=== PATIENT | male | born 1930 | race Caucasian/White ===

== ENCOUNTER 2019-04-30 13:14 | Inpatient (IN) | payer OTHER, MEDICAID ==
[~2019-04-30] VITALS: Ht 175.3 cm; Wt 59.0 kg
[~2019-04-30 13:14] MED LIST: BUPIVACAINE /PF 0.75% 10 ML VIAL INJ ONE; CEFAZOLIN 1 GM IVPB PREMIX 50 ML IV ONE; LR 1,000 ML IV.SOLN IV ONE; MORPHINE SULFATE 10MG/10ML PF AMP EP ONE; PROPOFOL 200MG/ 20ML VIAL (DIPRIVAN) IV ONE; ePHEDrine sulfate 50 MG/ML VIAL IVP ONE
[2019-04-30 13:50] VITALS: BP_SYST 146
[2019-04-30] MEDS ORDERED: NACL 0.9% 1,000 ML IV ONE (13:59)
[2019-04-30] MEDS ORDERED: MORPHINE 2 MG/ML INJ. SYRINGE IVP ONE (14:00)
[2019-04-30 14:44] LABS: BASOPHILS % (AUTO) 0.6 % (0.0-2.0); EOSINOPHILS # (AUTO) 0.1 K/uL (0.0-0.4); EOSINOPHILS % (AUTO) 1.8 % (0.0-4.0); LYMPHOCYTES # (AUTO) 0.3 K/uL (1.0-5.5); LYMPHOCYTES % (AUTO) 4.8 % (20.5-51.5); MEAN CORPUSCULAR HEMOGLOBIN 20 pg (27-31); MEAN CORPUSCULAR HGB CONC 30 % (32-36); MEAN CORPUSCULAR VOLUME 67 fL (79.0-98.0); MONOCYTES # (AUTO) 0.5 K/uL (0.0-1.0); MONOCYTES % (AUTO) 8.7 % (1.7-9.3); NEUTROPHILS # (AUTO) 5.2 K/uL (1.8-7.7); NEUTROPHILS % (AUTO) 84.1 % (40.0-70.0); PLATELET COUNT (AUTO) 167 K/uL (130-430); RED BLOOD CELL COUNT(AUTO) 3.15 MIL/uL (4.2-6.2); RED CELL DISTRIBUTION WIDTH 23.3 % (9.0-15.0); WHITE BLOOD COUNT (AUTO) 6.1 K/uL (4.8-10.8)
[2019-04-30 14:47] LABS: HEMOGLOBIN 6.3 g/dL (14.0-18.0)
[2019-04-30 15:00] LABS: ANION GAP 3 (5-15); CHLORIDE 106 mmol/L (98-107); CREATININE 0.79 mg/dL (0.55-1.30); GLUCOSE 69 mg/dL (70-99); POTASSIUM 3.7 mmol/L (3.5-5.1); SODIUM SERUM 143 mmol/L (136-145); UREA NITROGEN, BLOOD 26 mg/dL (8-21)
[2019-04-30 15:09] LABS: ALANINE AMINOTRANSFERASE 18 U/L (12-78); ALBUMIN 2.2 g/dL (3.4-4.8); ASPARTATE AMINOTRANSFERASE 16 U/L (10-37); TOTAL BILIRUBIN 0.9 mg/dL (0.0-1.0)
[2019-04-30 15:14] LABS: CALCIUM 8.4 mg/dL (8.4-11.0)
[2019-04-30] MEDS ORDERED: IOHEXOL 100 ML IV ONE (15:35)
[2019-04-30] MEDS ORDERED: ATROPINE SULFATE 0.5 MG/5 ML SYRINGE IVP ONE (16:15)
[2019-04-30] MEDS ORDERED: ATROPINE SULFATE 1 MG/10 ML SYRINGE IVP ONE (16:26)
[2019-04-30 16:57] LABS: INR 1.2 (0.80-1.20); PROTHROMBIN TIME 11.9 SECS (9.5-12.5)
[2019-04-30 17:27] LABS: BILIRUBIN,URINE 1+ (NEGATIVE); BLOOD, URINE NEGATIVE (NEGATIVE); COLOR,URINE YELLOW (YELLOW); GLUCOSE,URINE NEGATIVE (NEGATIVE); KETONES,URINE NEGATIVE (NEGATIVE); LEUKOCYTE ESTERASE ,URINE NEGATIVE (NEGATIVE); NITRITE, URINE NEGATIVE (NEGATIVE); PH,URINE 5.5 (5.0-8.0); PROTEIN URINE NEGATIVE (NEGATIVE); UROBILINOGEN,URINE 0.2 (0.2-1.0)
[2019-04-30 17:53] LABS: CLARITY/URINE SLIGHTLY HAZY (CLEAR)
[2019-04-30] MEDS ORDERED: KCL 20 mEq in D5/0.45NS 1000mL 1,000 ML IV ONE (18:00)
[2019-04-30] MEDS ORDERED: IPRATROPIUM/ALBUTEROL SULFATE 120 PUFFS/4 GM INH INH SCH (22:30)
[2019-04-30] MEDS ORDERED: MILK OF MAGNESIA 30 ML UDC PO PRN (22:30)
[2019-04-30] MEDS ORDERED: ACETAMINOPHEN 325 MG TABLET PO PRN (22:30)
[2019-04-30] MEDS ORDERED: BISACODYL 10 MG/SUPPOSITORY RC PRN (22:30)
[2019-04-30] MEDS ORDERED: MULT-1117 PO (23:19)
[2019-04-30] MEDS ORDERED: COR3.125 PO (23:19)
[2019-04-30] MEDS ORDERED: PANT40TA4 PO (23:19)
[2019-04-30] MEDS ORDERED: LIP80 PO (23:19)
[2019-04-30] MEDS ORDERED: GLU500 PO (23:19)
[2019-04-30] MEDS ORDERED: FER300L PO (23:19)
[2019-04-30] MEDS ORDERED: GLIP5TAB13 PO (23:19)
[2019-04-30] MEDS ORDERED: ACET-2165 PO (23:19)
[2019-04-30] MEDS ORDERED: MOM PO (23:19)
[2019-04-30] MEDS ORDERED: APIX2.5T PO (23:19)
[2019-04-30] MEDS ORDERED: IPRA4AER INH (23:19)
[2019-04-30] MEDS ORDERED: QUET25TA34 PO (23:19)
[2019-04-30] MEDS ORDERED: BISA10SU61 RC (23:19)
[2019-05-01] VITALS (16 sets, daily range): BP systolic 119–151
[2019-05-01] MEDS ORDERED: IPRATROPIUM/ALBUTEROL SULFATE 3 ML AMPUL.NEB (DUONEB) INH PRN (01:00)
[2019-05-01] MEDS: PANTOPRAZOLE SODIUM 40 MG TAB PO SCH (07:00)
[2019-05-01] MEDS ORDERED: metFORMIN HCL 500 MG TABLET PO SCH ×2 (08:00)
[2019-05-01] MEDS: CARVEDILOL 3.125 MG TABLET (COREG) PO SCH ×2 (08:00→17:22)
[2019-05-01] MEDS ORDERED: APIXABAN 2.5 MG TABLET PO SCH (08:00)
[2019-05-01 08:07] LABS: BASOPHILS % (AUTO) 0.3 % (0.0-2.0); EOSINOPHILS # (AUTO) 0.1 K/uL (0.0-0.4); EOSINOPHILS % (AUTO) 0.4 % (0.0-4.0); HEMATOCRIT 33.6 % (36-54); HEMOGLOBIN 10.1 g/dL (14.0-18.0); LYMPHOCYTES # (AUTO) 0.4 K/uL (1.0-5.5); LYMPHOCYTES % (AUTO) 2.8 % (20.5-51.5); MEAN CORPUSCULAR HEMOGLOBIN 22 pg (27-31); MEAN CORPUSCULAR HGB CONC 30 % (32-36); MEAN CORPUSCULAR VOLUME 73 fL (79.0-98.0); MONOCYTES # (AUTO) 1.1 K/uL (0.0-1.0); NEUTROPHILS # (AUTO) 13.4 K/uL (1.8-7.7); NEUTROPHILS % (AUTO) 89.5 % (40.0-70.0); PLATELET COUNT (AUTO) 267 K/uL (130-430); RED BLOOD CELL COUNT(AUTO) 4.57 MIL/uL (4.2-6.2); RED CELL DISTRIBUTION WIDTH 25.2 % (9.0-15.0)
[2019-05-01] MEDS: FERROUS SULFATE 300 MG/5 ML UDC PO SCH (09:00)
[2019-05-01] MEDS: MULTIVITAMINS TAB 1 TABLET PO SCH (09:00)
[2019-05-01] MEDS: ATORVASTATIN 20 MG TABLET PO SCH (09:00)
[2019-05-01 09:09] LABS: ANION GAP 3 (5-15); CALCIUM 8.6 mg/dL (8.4-11.0); CHLORIDE 106 mmol/L (98-107); CREATININE 0.89 mg/dL (0.55-1.30); GLUCOSE 141 mg/dL (70-99); PHOSPHORUS 4.8 mg/dL (2.7-4.5); POTASSIUM 4.6 mmol/L (3.5-5.1); SODIUM SERUM 139 mmol/L (136-145); UREA NITROGEN, BLOOD 24 mg/dL (8-21)
[2019-05-01 09:27] LABS: TOTAL IRON BIND. CAPACITY 295 ug/dL (250-450)
[2019-05-01] MEDS ORDERED: methylPREDNISolone SOD SUCC/PF 62.5 MG/ML VIAL IVP ONE (09:30)
[2019-05-01] MEDS ORDERED: ALBUTEROL SULFATE 0.083% 2.5 MG/3 ML VIAL.NEB INH PRN (10:00)
[2019-05-01] MEDS ORDERED: IPRATROPIUM BROM 0.5 MG/2.5 ML VIAL.NEB (ATROVENT) INH PRN (10:00)
[2019-05-01] MEDS: NACL 0.9% 1,000 ML IV SCH ×2 (10:56→22:07)
[2019-05-01] MEDS: cefTRIAXone 1 GM in D5W 50 ML IV SCH (10:56)
[2019-05-01] MEDS: metroNIDAZOLE 500 mg/NS 100 ML IV SCH ×3 (11:37→22:11)
[2019-05-01] MEDS: ALBUTEROL SULFATE 0.083% 2.5 MG/3 ML VIAL.NEB INH SCH ×2 (12:51→20:02)
[2019-05-01] MEDS: methylPREDNISolone SOD SUCC/PF 62.5 MG/ML VIAL IVP SCH ×3 (13:05→23:41)
[2019-05-01] MEDS: IPRATROPIUM BROM 0.5 MG/2.5 ML VIAL.NEB (ATROVENT) INH SCH ×2 (13:07→20:01)
[2019-05-01] MEDS: QUEtiapine FUMARATE 25 MG TABLET PO SCH (22:05)
[2019-05-01] MEDS: ENOXAPARIN SODIUM 40 MG/0.4 ML SYRINGE SUBCUT SCH (22:06)
[2019-05-01] MEDS ORDERED: metroNIDAZOLE 500 mg/NS 100 ML IV ONE (22:21)
[2019-05-02] VITALS (24 sets, daily range): BP systolic 116–181
[2019-05-02] MEDS: ALBUTEROL SULFATE 0.083% 2.5 MG/3 ML VIAL.NEB INH SCH ×4 (01:03→20:07)
[2019-05-02] MEDS: IPRATROPIUM BROM 0.5 MG/2.5 ML VIAL.NEB (ATROVENT) INH SCH ×4 (01:03→20:07)
[2019-05-02 05:54] LABS: BASOPHILS % (AUTO) 0.2 % (0.0-2.0); EOSINOPHILS % (AUTO) 0.2 % (0.0-4.0); HEMATOCRIT 27.9 % (36-54); HEMOGLOBIN 8.6 g/dL (14.0-18.0); LYMPHOCYTES # (AUTO) 0.1 K/uL (1.0-5.5); MEAN CORPUSCULAR HEMOGLOBIN 23 pg (27-31); MEAN CORPUSCULAR HGB CONC 31 % (32-36); MEAN CORPUSCULAR VOLUME 73 fL (79.0-98.0); MONOCYTES # (AUTO) 0.1 K/uL (0.0-1.0); MONOCYTES % (AUTO) 1.9 % (1.7-9.3); NEUTROPHILS # (AUTO) 5.6 K/uL (1.8-7.7); NEUTROPHILS % (AUTO) 95.7 % (40.0-70.0); PLATELET COUNT (AUTO) 152 K/uL (130-430); RED BLOOD CELL COUNT(AUTO) 3.83 MIL/uL (4.2-6.2); RED CELL DISTRIBUTION WIDTH 25.5 % (9.0-15.0); WHITE BLOOD COUNT (AUTO) 5.8 K/uL (4.8-10.8)
[2019-05-02 06:25] LABS: ANION GAP 4 (5-15); CALCIUM 8.1 mg/dL (8.4-11.0); CHLORIDE 108 mmol/L (98-107); CREATININE 0.95 mg/dL (0.55-1.30); GLUCOSE 161 mg/dL (70-99); POTASSIUM 4.5 mmol/L (3.5-5.1); SODIUM SERUM 140 mmol/L (136-145); UREA NITROGEN, BLOOD 28 mg/dL (8-21)
[2019-05-02] MEDS: methylPREDNISolone SOD SUCC/PF 62.5 MG/ML VIAL IVP SCH (06:30)
[2019-05-02] MEDS: PANTOPRAZOLE SODIUM 40 MG TAB PO SCH (06:30)
[2019-05-02] MEDS: metroNIDAZOLE 500 mg/NS 100 ML IV SCH ×3 (06:31→21:47)
[2019-05-02] MEDS: FERROUS SULFATE 300 MG/5 ML UDC PO SCH (08:18)
[2019-05-02] MEDS: NACL 0.9% 1,000 ML IV SCH (08:19)
[2019-05-02] MEDS: MULTIVITAMINS TAB 1 TABLET PO SCH (08:19)
[2019-05-02] MEDS: ATORVASTATIN 20 MG TABLET PO SCH (08:19)
[2019-05-02] MEDS: cefTRIAXone 1 GM in D5W 50 ML IV SCH (08:20)
[2019-05-02 10:07] LABS: FOLATE (FOLIC ACID) 8.1 ng/mL (>3.0)
[2019-05-02] MEDS: 0.45% NACL 1,000 ML IV SCH (10:57)
[2019-05-02] MEDS: methylPREDNISolone SOD SUCC 40 MG/ML VIAL IVP SCH ×2 (14:13→21:47)
[2019-05-02] MEDS ORDERED: BALSAM PERU/CASTOR OIL 60 GM OINT...G. TP PRN (14:45)
[2019-05-02] MEDS: SOD FERRIC GLUC COMPLEX/SUC 125 MG in NS 100 ML IV SCH (15:58)
[2019-05-02] MEDS: QUEtiapine FUMARATE 25 MG TABLET PO SCH (21:47)
[2019-05-02] MEDS: ENOXAPARIN SODIUM 40 MG/0.4 ML SYRINGE SUBCUT SCH (21:52)
[2019-05-02] MEDS: INSULIN REGULAR, HUMAN 100 UNITS/ML, 10 ML VIAL (humuLIN R) SUBCUT PRN (22:38)
[2019-05-03] VITALS (23 sets, daily range): BP systolic 130–179
[2019-05-03] MEDS: IPRATROPIUM BROM 0.5 MG/2.5 ML VIAL.NEB (ATROVENT) INH SCH ×2 (01:00→20:10)
[2019-05-03] MEDS: ALBUTEROL SULFATE 0.083% 2.5 MG/3 ML VIAL.NEB INH SCH ×2 (01:00→20:09)
[2019-05-03] MEDS: methylPREDNISolone SOD SUCC 40 MG/ML VIAL IVP SCH ×2 (05:29→20:30)
[2019-05-03] MEDS: metroNIDAZOLE 500 mg/NS 100 ML IV SCH ×3 (05:30→22:07)
[2019-05-03 05:32] LABS: BASOPHILS % (AUTO) 0.3 % (0.0-2.0); HEMATOCRIT 31.6 % (36-54); HEMOGLOBIN 9.7 g/dL (14.0-18.0); LYMPHOCYTES # (AUTO) 0.1 K/uL (1.0-5.5); MEAN CORPUSCULAR HEMOGLOBIN 22 pg (27-31); MEAN CORPUSCULAR HGB CONC 31 % (32-36); MEAN CORPUSCULAR VOLUME 73 fL (79.0-98.0); MONOCYTES # (AUTO) 0.4 K/uL (0.0-1.0); MONOCYTES % (AUTO) 3.1 % (1.7-9.3); NEUTROPHILS # (AUTO) 10.9 K/uL (1.8-7.7); NEUTROPHILS % (AUTO) 95.6 % (40.0-70.0); PLATELET COUNT (AUTO) 238 K/uL (130-430); RED BLOOD CELL COUNT(AUTO) 4.36 MIL/uL (4.2-6.2); RED CELL DISTRIBUTION WIDTH 25.6 % (9.0-15.0); WHITE BLOOD COUNT (AUTO) 11.4 K/uL (4.8-10.8)
[2019-05-03 05:47] LABS: ANION GAP 5 (5-15); CALCIUM 8.4 mg/dL (8.4-11.0); CHLORIDE 106 mmol/L (98-107); CREATININE 1.06 mg/dL (0.55-1.30); GLUCOSE 201 mg/dL (70-99); POTASSIUM 4.5 mmol/L (3.5-5.1); SODIUM SERUM 141 mmol/L (136-145); UREA NITROGEN, BLOOD 41 mg/dL (8-21)
[2019-05-03] MEDS: MORPHINE 2 MG/ML INJ. SYRINGE IVP PRN ×2 (05:53→20:31)
[2019-05-03] MEDS: INSULIN REGULAR, HUMAN 100 UNITS/ML, 10 ML VIAL (humuLIN R) SUBCUT PRN ×2 (06:07→20:35)
[2019-05-03] MEDS: PANTOPRAZOLE SODIUM 40 MG TAB PO SCH (06:08)
[2019-05-03] MEDS: BALSAM PERU/CASTOR OIL 60 GM OINT...G. TP SCH (08:33)
[2019-05-03] MEDS: FERROUS SULFATE 300 MG/5 ML UDC PO SCH (08:34)
[2019-05-03] MEDS: cefTRIAXone 1 GM in D5W 50 ML IV SCH (08:34)
[2019-05-03] MEDS: MULTIVITAMINS TAB 1 TABLET PO SCH (08:34)
[2019-05-03] MEDS: ATORVASTATIN 20 MG TABLET PO SCH (08:34)
[2019-05-03] MEDS: 0.45% NACL 1,000 ML IV SCH ×2 (08:36→18:47)
[2019-05-03] MEDS: SOD FERRIC GLUC COMPLEX/SUC 125 MG in NS 100 ML IV SCH (15:38)
[2019-05-03] MEDS: QUEtiapine FUMARATE 25 MG TABLET PO SCH (20:30)
[2019-05-03] MEDS: ENOXAPARIN SODIUM 40 MG/0.4 ML SYRINGE SUBCUT SCH (20:36)
[2019-05-04] VITALS (21 sets, daily range): BP systolic 109–168
[2019-05-04] MEDS: IPRATROPIUM BROM 0.5 MG/2.5 ML VIAL.NEB (ATROVENT) INH SCH ×4 (01:23→19:56)
[2019-05-04] MEDS: ALBUTEROL SULFATE 0.083% 2.5 MG/3 ML VIAL.NEB INH SCH ×4 (01:23→19:56)
[2019-05-04] MEDS: metroNIDAZOLE 500 mg/NS 100 ML IV SCH ×3 (05:43→21:42)
[2019-05-04] MEDS: INSULIN REGULAR, HUMAN 100 UNITS/ML, 10 ML VIAL (humuLIN R) SUBCUT PRN ×3 (06:18→21:51)
[2019-05-04] MEDS: PANTOPRAZOLE SODIUM 40 MG TAB PO SCH (06:23)
[2019-05-04 06:53] LABS: EOSINOPHILS % (AUTO) 0.1 % (0.0-4.0); HEMATOCRIT 29.4 % (36-54); HEMOGLOBIN 9.4 g/dL (14.0-18.0); LYMPHOCYTES # (AUTO) 0.1 K/uL (1.0-5.5); LYMPHOCYTES % (AUTO) 1.3 % (20.5-51.5); MEAN CORPUSCULAR HEMOGLOBIN 23 pg (27-31); MEAN CORPUSCULAR HGB CONC 32 % (32-36); MEAN CORPUSCULAR VOLUME 71 fL (79.0-98.0); MONOCYTES # (AUTO) 0.3 K/uL (0.0-1.0); MONOCYTES % (AUTO) 2.8 % (1.7-9.3); NEUTROPHILS # (AUTO) 8.5 K/uL (1.8-7.7); NEUTROPHILS % (AUTO) 95.8 % (40.0-70.0); PLATELET COUNT (AUTO) 173 K/uL (130-430); RED BLOOD CELL COUNT(AUTO) 4.13 MIL/uL (4.2-6.2); RED CELL DISTRIBUTION WIDTH 26.2 % (9.0-15.0); WHITE BLOOD COUNT (AUTO) 8.9 K/uL (4.8-10.8)
[2019-05-04 06:55] LABS: ANION GAP 1 (5-15); CHLORIDE 103 mmol/L (98-107); CREATININE 0.79 mg/dL (0.55-1.30); GLUCOSE 182 mg/dL (70-99); SODIUM SERUM 133 mmol/L (136-145); UREA NITROGEN, BLOOD 34 mg/dL (8-21)
[2019-05-04] MEDS: FERROUS SULFATE 300 MG/5 ML UDC PO SCH (08:39)
[2019-05-04] MEDS: MULTIVITAMINS TAB 1 TABLET PO SCH (08:39)
[2019-05-04] MEDS: methylPREDNISolone SOD SUCC 40 MG/ML VIAL IVP SCH ×2 (08:39→21:42)
[2019-05-04] MEDS: ATORVASTATIN 20 MG TABLET PO SCH (08:39)
[2019-05-04] MEDS: cefTRIAXone 1 GM in D5W 50 ML IV SCH (08:41)
[2019-05-04] MEDS: BALSAM PERU/CASTOR OIL 60 GM OINT...G. TP SCH (08:42)
[2019-05-04] MEDS: 0.45% NACL 1,000 ML IV SCH (11:43)
[2019-05-04] MEDS: SOD FERRIC GLUC COMPLEX/SUC 125 MG in NS 100 ML IV SCH (15:34)
[2019-05-04] MEDS: QUEtiapine FUMARATE 25 MG TABLET PO SCH (21:42)
[2019-05-04] MEDS: ENOXAPARIN SODIUM 40 MG/0.4 ML SYRINGE SUBCUT SCH (21:43)
[2019-05-05 01:31] VITALS: BP_SYST 146
[2019-05-05] MEDS: IPRATROPIUM BROM 0.5 MG/2.5 ML VIAL.NEB (ATROVENT) INH SCH ×4 (01:39→21:12)
[2019-05-05] MEDS: ALBUTEROL SULFATE 0.083% 2.5 MG/3 ML VIAL.NEB INH SCH ×4 (01:39→21:12)
[2019-05-05] MEDS: 0.45% NACL 1,000 ML IV SCH (04:58)
[2019-05-05] MEDS: metroNIDAZOLE 500 mg/NS 100 ML IV SCH ×3 (04:59→22:06)
[2019-05-05] MEDS: PANTOPRAZOLE SODIUM 40 MG TAB PO SCH (06:08)
[2019-05-05 08:00] VITALS: BP_SYST 142
[2019-05-05] MEDS: FERROUS SULFATE 300 MG/5 ML UDC PO SCH (08:45)
[2019-05-05] MEDS: MULTIVITAMINS TAB 1 TABLET PO SCH (08:45)
[2019-05-05] MEDS: methylPREDNISolone SOD SUCC 40 MG/ML VIAL IVP SCH ×2 (08:45→22:04)
[2019-05-05] MEDS: cefTRIAXone 1 GM in D5W 50 ML IV SCH (08:45)
[2019-05-05] MEDS: ATORVASTATIN 20 MG TABLET PO SCH (08:45)
[2019-05-05] MEDS: BALSAM PERU/CASTOR OIL 60 GM OINT...G. TP SCH (08:46)
[2019-05-05 12:39] VITALS: BP_SYST 160
[2019-05-05] MEDS: INSULIN REGULAR, HUMAN 100 UNITS/ML, 10 ML VIAL (humuLIN R) SUBCUT PRN ×2 (13:12→17:54)
[2019-05-05] MEDS: SOD FERRIC GLUC COMPLEX/SUC 125 MG in NS 100 ML IV SCH (16:22)
[2019-05-05 16:56] VITALS: BP_SYST 143
[2019-05-05 20:00] VITALS: BP_SYST 164
[2019-05-05] MEDS: ENOXAPARIN SODIUM 40 MG/0.4 ML SYRINGE SUBCUT SCH (21:00)
[2019-05-05 22:00] VITALS: BP_SYST 158
[2019-05-05] MEDS: QUEtiapine FUMARATE 25 MG TABLET PO SCH (22:10)
[2019-05-06] VITALS: BP_SYST 162
[2019-05-06] MEDS: IPRATROPIUM BROM 0.5 MG/2.5 ML VIAL.NEB (ATROVENT) INH SCH ×4 (01:00→19:56)
[2019-05-06] MEDS: ALBUTEROL SULFATE 0.083% 2.5 MG/3 ML VIAL.NEB INH SCH ×4 (01:00→19:56)
[2019-05-06] MEDS: 0.45% NACL 1,000 ML IV SCH ×2 (06:00→13:50)
[2019-05-06] MEDS: metroNIDAZOLE 500 mg/NS 100 ML IV SCH ×3 (06:20→22:09)
[2019-05-06 06:33] VITALS: BP_SYST 159
[2019-05-06 07:30] LABS: BASOPHILS % (AUTO) 0.1 % (0.0-2.0); HEMATOCRIT 33.6 % (36-54); HEMOGLOBIN 10.7 g/dL (14.0-18.0); LYMPHOCYTES # (AUTO) 0.2 K/uL (1.0-5.5); LYMPHOCYTES % (AUTO) 1.3 % (20.5-51.5); MEAN CORPUSCULAR HEMOGLOBIN 22 pg (27-31); MEAN CORPUSCULAR HGB CONC 32 % (32-36); MEAN CORPUSCULAR VOLUME 71 fL (79.0-98.0); MONOCYTES # (AUTO) 0.3 K/uL (0.0-1.0); MONOCYTES % (AUTO) 2.3 % (1.7-9.3); NEUTROPHILS # (AUTO) 12.7 K/uL (1.8-7.7); NEUTROPHILS % (AUTO) 96.3 % (40.0-70.0); PLATELET COUNT (AUTO) 213 K/uL (130-430); RED BLOOD CELL COUNT(AUTO) 4.76 MIL/uL (4.2-6.2); RED CELL DISTRIBUTION WIDTH 26.6 % (9.0-15.0); WHITE BLOOD COUNT (AUTO) 13.2 K/uL (4.8-10.8)
[2019-05-06] MEDS: PANTOPRAZOLE SODIUM 40 MG TAB PO SCH (07:39)
[2019-05-06 07:56] LABS: ALANINE AMINOTRANSFERASE 24 U/L (12-78); ALBUMIN 2.2 g/dL (3.4-4.8); ANION GAP 6 (5-15); ASPARTATE AMINOTRANSFERASE 30 U/L (10-37); CALCIUM 8.5 mg/dL (8.4-11.0); CHLORIDE 105 mmol/L (98-107); CREATININE 0.68 mg/dL (0.55-1.30); GLUCOSE 103 mg/dL (70-99); POTASSIUM 4.5 mmol/L (3.5-5.1); SODIUM SERUM 139 mmol/L (136-145); TOTAL BILIRUBIN 0.6 mg/dL (0.0-1.0); UREA NITROGEN, BLOOD 28 mg/dL (8-21)
[2019-05-06 08:30] VITALS: BP_SYST 152
[2019-05-06] MEDS: ATORVASTATIN 20 MG TABLET PO SCH (09:00)
[2019-05-06] MEDS: MULTIVITAMINS TAB 1 TABLET PO SCH (09:00)
[2019-05-06] MEDS: FERROUS SULFATE 300 MG/5 ML UDC PO SCH (09:00)
[2019-05-06] MEDS: methylPREDNISolone SOD SUCC 40 MG/ML VIAL IVP SCH ×2 (09:18→22:09)
[2019-05-06] MEDS: cefTRIAXone 1 GM in D5W 50 ML IV SCH (09:18)
[2019-05-06] MEDS: BALSAM PERU/CASTOR OIL 60 GM OINT...G. TP SCH (09:19)
[2019-05-06] MEDS ORDERED: POLYMYXIN 500,000/BACIT.10,000 UNITS in NS IRR 1 L IR ONE (10:17)
[2019-05-06] MEDS ORDERED: ONDANSETRON HCL 4 MG/2 ML VIAL IVP PRN (11:15)
[2019-05-06] MEDS ORDERED: KETOROLAC TROMETHAMINE 60 MG/2 ML VIAL IM PRN (11:15)
[2019-05-06] MEDS ORDERED: fentaNYL CITRATE/PF 100 MCG/2 ML AMP IVP PRN ×2 (11:15)
[2019-05-06] MEDS ORDERED: NALOXONE HCL 0.4 MG/ML AMP (NARCAN) IVP PRN ×2 (11:15)
[2019-05-06] MEDS ORDERED: MORPHINE SULFATE 10MG/10ML PF AMP SP SCH (11:15)
[2019-05-06] MEDS ORDERED: DIPHENHYDRAMINE INJ 50 MG/ML VIAL IVP PRN (11:15)
[2019-05-06] MEDS ORDERED: NALBUPHINE HCL 10 MG/ML AMP IVP PRN (11:15)
[2019-05-06 13:30] VITALS: BP_SYST 135
[2019-05-06] MEDS: SOD FERRIC GLUC COMPLEX/SUC 125 MG in NS 100 ML IV SCH (14:52)
[2019-05-06] MEDS: INSULIN REGULAR, HUMAN 100 UNITS/ML, 10 ML VIAL (humuLIN R) SUBCUT PRN ×2 (16:21→22:24)
[2019-05-06 17:09] VITALS: BP_SYST 133
[2019-05-06 20:00] VITALS: BP_SYST 138
[2019-05-06] MEDS: QUEtiapine FUMARATE 25 MG TABLET PO SCH ×2 (22:09→22:31)
[2019-05-06] MEDS: ENOXAPARIN SODIUM 40 MG/0.4 ML SYRINGE SUBCUT SCH (22:13)
[2019-05-07 00:13] VITALS: BP_SYST 117
[2019-05-07] MEDS: ALBUTEROL SULFATE 0.083% 2.5 MG/3 ML VIAL.NEB INH SCH ×3 (00:53→19:43)
[2019-05-07] MEDS: IPRATROPIUM BROM 0.5 MG/2.5 ML VIAL.NEB (ATROVENT) INH SCH ×4 (00:53→19:50)
[2019-05-07] MEDS: QUEtiapine FUMARATE 25 MG TABLET PO SCH ×2 (05:50→20:45)
[2019-05-07] MEDS: metroNIDAZOLE 500 mg/NS 100 ML IV SCH ×3 (06:16→20:53)
[2019-05-07] MEDS: PANTOPRAZOLE SODIUM 40 MG TAB PO SCH (07:00)
[2019-05-07 08:18] LABS: BASOPHILS % (AUTO) 0.1 % (0.0-2.0); EOSINOPHILS % (AUTO) 0.1 % (0.0-4.0); HEMATOCRIT 33.2 % (36-54); HEMOGLOBIN 10.1 g/dL (14.0-18.0); LYMPHOCYTES # (AUTO) 0.3 K/uL (1.0-5.5); LYMPHOCYTES % (AUTO) 1.8 % (20.5-51.5); MEAN CORPUSCULAR HEMOGLOBIN 22 pg (27-31); MEAN CORPUSCULAR HGB CONC 30 % (32-36); MEAN CORPUSCULAR VOLUME 73 fL (79.0-98.0); MONOCYTES # (AUTO) 0.7 K/uL (0.0-1.0); MONOCYTES % (AUTO) 4.9 % (1.7-9.3); NEUTROPHILS % (AUTO) 93.1 % (40.0-70.0); PLATELET COUNT (AUTO) 173 K/uL (130-430); RED BLOOD CELL COUNT(AUTO) 4.52 MIL/uL (4.2-6.2); RED CELL DISTRIBUTION WIDTH 26.4 % (9.0-15.0)
[2019-05-07] MEDS: BALSAM PERU/CASTOR OIL 60 GM OINT...G. TP SCH (09:00)
[2019-05-07 09:12] LABS: ANION GAP 4 (5-15); CALCIUM 8.5 mg/dL (8.4-11.0); CHLORIDE 106 mmol/L (98-107); CREATININE 0.79 mg/dL (0.55-1.30); GLUCOSE 106 mg/dL (70-99); POTASSIUM 4.5 mmol/L (3.5-5.1); SODIUM SERUM 139 mmol/L (136-145); UREA NITROGEN, BLOOD 30 mg/dL (8-21)
[2019-05-07] MEDS: FERROUS SULFATE 300 MG/5 ML UDC PO SCH (09:56)
[2019-05-07] MEDS: ATORVASTATIN 20 MG TABLET PO SCH (09:57)
[2019-05-07] MEDS: methylPREDNISolone SOD SUCC 40 MG/ML VIAL IVP SCH ×2 (09:57→20:40)
[2019-05-07] MEDS: MULTIVITAMINS TAB 1 TABLET PO SCH (09:57)
[2019-05-07] MEDS: cefTRIAXone 1 GM in D5W 50 ML IV SCH (10:00)
[2019-05-07] MEDS: 0.45% NACL 1,000 ML IV SCH (11:56)
[2019-05-07 12:20] VITALS: BP_SYST 112
[2019-05-07] MEDS: SOD FERRIC GLUC COMPLEX/SUC 125 MG in NS 100 ML IV SCH (14:49)
[2019-05-07] MEDS: MORPHINE 2 MG/ML INJ. SYRINGE IVP PRN (15:48)
[2019-05-07 16:04] VITALS: BP_SYST 117
[2019-05-07 17:55] VITALS: BP_SYST 117
[2019-05-07 20:00] VITALS: BP_SYST 136
[2019-05-07] MEDS: INSULIN REGULAR, HUMAN 100 UNITS/ML, 10 ML VIAL (humuLIN R) SUBCUT PRN (20:43)
[2019-05-07] MEDS: ENOXAPARIN SODIUM 40 MG/0.4 ML SYRINGE SUBCUT SCH (20:44)
[2019-05-08 00:16] VITALS: BP_SYST 127
[2019-05-08] MEDS: ALBUTEROL SULFATE 0.083% 2.5 MG/3 ML VIAL.NEB INH SCH ×4 (01:00→19:52)
[2019-05-08] MEDS: IPRATROPIUM BROM 0.5 MG/2.5 ML VIAL.NEB (ATROVENT) INH SCH ×4 (01:00→19:52)
[2019-05-08] MEDS: 0.45% NACL 1,000 ML IV SCH ×2 (01:20→21:24)
[2019-05-08] MEDS: metroNIDAZOLE 500 mg/NS 100 ML IV SCH (05:43)
[2019-05-08] MEDS: PANTOPRAZOLE SODIUM 40 MG TAB PO SCH (05:44)
[2019-05-08] MEDS: INSULIN REGULAR, HUMAN 100 UNITS/ML, 10 ML VIAL (humuLIN R) SUBCUT PRN ×3 (05:48→21:31)
[2019-05-08 06:32] LABS: BASOPHILS % (AUTO) 0.1 % (0.0-2.0); EOSINOPHILS % (AUTO) 0.2 % (0.0-4.0); HEMATOCRIT 29.6 % (36-54); HEMOGLOBIN 9.2 g/dL (14.0-18.0); LYMPHOCYTES # (AUTO) 0.1 K/uL (1.0-5.5); MEAN CORPUSCULAR HEMOGLOBIN 22 pg (27-31); MEAN CORPUSCULAR HGB CONC 31 % (32-36); MEAN CORPUSCULAR VOLUME 72 fL (79.0-98.0); MONOCYTES # (AUTO) 0.4 K/uL (0.0-1.0); MONOCYTES % (AUTO) 2.8 % (1.7-9.3); NEUTROPHILS # (AUTO) 13.6 K/uL (1.8-7.7); NEUTROPHILS % (AUTO) 95.9 % (40.0-70.0); PLATELET COUNT (AUTO) 143 K/uL (130-430); RED CELL DISTRIBUTION WIDTH 26.4 % (9.0-15.0); WHITE BLOOD COUNT (AUTO) 14.2 K/uL (4.8-10.8)
[2019-05-08 06:48] LABS: CALCIUM 7.9 mg/dL (8.4-11.0); CREATININE 0.74 mg/dL (0.55-1.30); GLUCOSE 250 mg/dL (70-99); UREA NITROGEN, BLOOD 29 mg/dL (8-21)
[2019-05-08 07:14] LABS: POTASSIUM 5.4 mmol/L (3.5-5.1); SODIUM SERUM 136 mmol/L (136-145)
[2019-05-08 07:15] LABS: ANION GAP 0 (5-15); CHLORIDE 104 mmol/L (98-107)
[2019-05-08] MEDS: cefTRIAXone 1 GM in D5W 50 ML IV SCH (09:51)
[2019-05-08] MEDS: ATORVASTATIN 20 MG TABLET PO SCH (09:55)
[2019-05-08] MEDS: FERROUS SULFATE 300 MG/5 ML UDC PO SCH (09:55)
[2019-05-08] MEDS: MULTIVITAMINS TAB 1 TABLET PO SCH (09:55)
[2019-05-08] MEDS: BALSAM PERU/CASTOR OIL 60 GM OINT...G. TP SCH (09:56)
[2019-05-08 10:00] VITALS: BP_SYST 147
[2019-05-08 12:30] VITALS: BP_SYST 154
[2019-05-08] MEDS: SOD FERRIC GLUC COMPLEX/SUC 125 MG in NS 100 ML IV SCH (15:46)
[2019-05-08 16:18] VITALS: BP_SYST 139
[2019-05-08 20:00] VITALS: BP_SYST 134
[2019-05-08] MEDS ORDERED: PREDNISONE 20 MG TABLET PO SCH (21:00)
[2019-05-08] MEDS: QUEtiapine FUMARATE 25 MG TABLET PO SCH (21:24)
[2019-05-08] MEDS: ENOXAPARIN SODIUM 40 MG/0.4 ML SYRINGE SUBCUT SCH (21:25)
[2019-05-09] MEDS: ALBUTEROL SULFATE 0.083% 2.5 MG/3 ML VIAL.NEB INH SCH ×4 (00:32→19:50)
[2019-05-09] MEDS: IPRATROPIUM BROM 0.5 MG/2.5 ML VIAL.NEB (ATROVENT) INH SCH ×4 (00:32→19:50)
[2019-05-09 01:00] VITALS: BP_SYST 158
[2019-05-09] MEDS: INSULIN REGULAR, HUMAN 100 UNITS/ML, 10 ML VIAL (humuLIN R) SUBCUT PRN ×3 (06:14→18:01)
[2019-05-09] MEDS: PANTOPRAZOLE SODIUM 40 MG TAB PO SCH (06:15)
[2019-05-09 07:52] LABS: BASOPHILS % (AUTO) 0.2 % (0.0-2.0); HEMATOCRIT 30.2 % (36-54); HEMOGLOBIN 9.1 g/dL (14.0-18.0); LYMPHOCYTES # (AUTO) 0.2 K/uL (1.0-5.5); LYMPHOCYTES % (AUTO) 1.4 % (20.5-51.5); MEAN CORPUSCULAR HEMOGLOBIN 22 pg (27-31); MEAN CORPUSCULAR HGB CONC 30 % (32-36); MEAN CORPUSCULAR VOLUME 72 fL (79.0-98.0); MONOCYTES # (AUTO) 0.5 K/uL (0.0-1.0); MONOCYTES % (AUTO) 3.1 % (1.7-9.3); NEUTROPHILS # (AUTO) 14.6 K/uL (1.8-7.7); NEUTROPHILS % (AUTO) 95.3 % (40.0-70.0); PLATELET COUNT (AUTO) 140 K/uL (130-430); RED BLOOD CELL COUNT(AUTO) 4.17 MIL/uL (4.2-6.2); WHITE BLOOD COUNT (AUTO) 15.3 K/uL (4.8-10.8)
[2019-05-09 08:10] LABS: ANION GAP 4 (5-15); CHLORIDE 103 mmol/L (98-107); CREATININE 0.71 mg/dL (0.55-1.30); GLUCOSE 170 mg/dL (70-99); POTASSIUM 4.5 mmol/L (3.5-5.1); SODIUM SERUM 136 mmol/L (136-145); UREA NITROGEN, BLOOD 23 mg/dL (8-21)
[2019-05-09 08:18] VITALS: BP_SYST 166
[2019-05-09] MEDS: BALSAM PERU/CASTOR OIL 60 GM OINT...G. TP SCH (09:00)
[2019-05-09] MEDS: MULTIVITAMINS TAB 1 TABLET PO SCH (11:00)
[2019-05-09] MEDS: ATORVASTATIN 20 MG TABLET PO SCH (11:00)
[2019-05-09] MEDS: FERROUS SULFATE 300 MG/5 ML UDC PO SCH (11:00)
[2019-05-09] MEDS: 0.45% NACL 1,000 ML IV SCH (11:30)
[2019-05-09 11:59] VITALS: BP_SYST 144
[2019-05-09] MEDS: SOD FERRIC GLUC COMPLEX/SUC 125 MG in NS 100 ML IV SCH (15:41)
[2019-05-09 16:30] VITALS: BP_SYST 146
[2019-05-09] MEDS ORDERED: PREDNISONE 20 MG TABLET PO SCH (21:00)
[2019-05-09] MEDS: QUEtiapine FUMARATE 25 MG TABLET PO SCH (21:57)
[2019-05-09] MEDS: ENOXAPARIN SODIUM 40 MG/0.4 ML SYRINGE SUBCUT SCH (22:09)
[2019-05-10] MEDS: IPRATROPIUM BROM 0.5 MG/2.5 ML VIAL.NEB (ATROVENT) INH SCH (00:55)
[2019-05-10] MEDS: ALBUTEROL SULFATE 0.083% 2.5 MG/3 ML VIAL.NEB INH SCH (00:55)
[2019-05-10 01:07] VITALS: BP_SYST 135
[2019-05-10] MEDS: 0.45% NACL 1,000 ML IV SCH (04:06)
[2019-05-22 10:49] LABS: ANION GAP 1 (5-15); CHLORIDE 104 mmol/L (98-107); POTASSIUM 4.5 mmol/L (3.5-5.1); SODIUM SERUM 136 mmol/L (136-145)
[2019-05-22 10:50] LABS: CREATININE 0.62 mg/dL (0.55-1.30); GLUCOSE 167 mg/dL (70-99); UREA NITROGEN, BLOOD 28 mg/dL (8-21)
[2019-05-22 10:51] LABS: BASOPHILS % (AUTO) 0.1 % (0.0-2.0); HEMATOCRIT 24.6 % (36-54); HEMOGLOBIN 7.5 g/dL (14.0-18.0); LYMPHOCYTES % (AUTO) 1.2 % (20.5-51.5); MEAN CORPUSCULAR HEMOGLOBIN 22 pg (27-31); MEAN CORPUSCULAR HGB CONC 30 % (32-36); MEAN CORPUSCULAR VOLUME 73 fL (79.0-98.0); NEUTROPHILS % (AUTO) 95.7 % (40.0-70.0); PLATELET COUNT (AUTO) 125 K/uL (130-430); RED BLOOD CELL COUNT(AUTO) 3.36 MIL/uL (4.2-6.2)
== END 2019-05-10 11:36 | DRG 469 ==
LOC: SED 13:14 → STU 16:56 → SIC 05-01 12:24 → STU 05-04 21:06 → SMU 05-09 22:21
PROVIDERS: ADMIT Family Medicine; ATTEND Family Medicine
PROC: 30233N1 Transfusion of Nonautologous Red Blood Cells into Peripheral Vein, Percutaneous Approach (ICD-10-PCS; 2019-04-30)
PROC: 0SRS0J9 Replacement of Left Hip Joint, Femoral Surface with Synthetic Substitute, Cemented, Open Approach (ICD-10-PCS; principal; 2019-05-06 09:30)
DX: S72.012A Unspecified intracapsular fracture of left femur, initial encounter for closed fracture (principal); E43 Unspecified severe protein-calorie malnutrition; J96.01 Acute respiratory failure with hypoxia; J96.02 Acute respiratory failure with hypercapnia; Z68.1 Body mass index [BMI] 19.9 or less, adult; I48.92 Unspecified atrial flutter; D64.9 Anemia, unspecified; J44.9 Chronic obstructive pulmonary disease, unspecified; R29.6 Repeated falls; M19.90 Unspecified osteoarthritis, unspecified site; F03.90 Unspecified dementia, unspecified severity, without behavioral disturbance, psychotic disturbance, mood disturbance, and anxiety; I25.10 Atherosclerotic heart disease of native coronary artery without angina pectoris; I10 Essential (primary) hypertension; E11.9 Type 2 diabetes mellitus without complications; R91.8 Other nonspecific abnormal finding of lung field; I35.0 Nonrheumatic aortic (valve) stenosis; I48.91 Unspecified atrial fibrillation; W18.39XA Other fall on same level, initial encounter; Y93.89 Activity, other specified; Y92.89 Other specified places as the place of occurrence of the external cause; Z95.5 Presence of coronary angioplasty implant and graft; Z87.891 Personal history of nicotine dependence; Z88.0 Allergy status to penicillin; Z79.899 Other long term (current) drug therapy; Y99.8 Other external cause status
CPT/HCPCS: 36415; 36600; 70450-TC; 71045; 71260-TC; 72170-TC; 72192-TC; 80048; 80053; 81003; 82607; 82728; 82746; 82803-TC; 82962; 83540-TC; 83550-TC; 83735-TC; 83880; 84100-TC; 84484; 85025; 85610-TC; 85730-TC; 86886; 86900; 86901; 86920; 87040-TC; 87081; 88305; 88311; 93005; 93306; 93970; 94640; 94660; 94760; 96361; 96374; 96375; 97530-GP; 99285; C1713; C1776; G0378; J0461; J0690; J0696; J1030; J1650; J1815; J2270; J2274; J2704; J2916; J2930; J3490; J7030; J7040; J7060; J7120; J7512; J7613; P9021; Q9967